=== PATIENT | male | born 1975 | race Hispanic/Latino ===

== ENCOUNTER 2017-05-04 09:31 | Emergency (ER) | payer SELFPAY ==
[~2017-05-04] VITALS: Ht 177.8 cm; Wt 118.5 kg
[2017-05-04 12:33] LABS: EOSINOPHIL (%) 0.7 % (0-5); EOSINOPHIL COUNT 0.1 K/uL (0-0.3); HEMATOCRIT 46.2 % (38.0-50.0); IMMATURE GRANULOCYTE (%) 0.7 % (0.0-0.7); IMMATURE GRANULOCYTE COUNT 0.1 K/uL; INSTRUMENT ABS NEUTROPHIL CT 6.2 K/uL; LYMPHOCYTE COUNT 1.4 K/uL (1.0-2.8); MCH 30.2 PG (29.0-34.0); MCHC 34.4 G/DL (30.0-36.0); MCV 87.7 FL (86-99); MEAN PLAT.VOLUME 11.7 uM^3 (9.0-12.4); MONOCYTE (%) 4.9 % (3-12); MONOCYTE COUNT 0.4 K/uL (0-0.8); NEUTROPHIL (%) 75.9 % (45-76); NEUTROPHIL COUNT 6.2 K/uL (1.8-6.4); PLATELET COUNT 180 K/uL (156-360); RBC DIS.WIDTH-CV 13.2 % (11.8-14.6); RBC DIS.WIDTH-SD 42.8 % (39-53); RED BLOOD COUNT 5.27 M/uL (4.00-5.50); WHITE BLOOD COUNT 8.2 K/uL (4.1-10.2)
[2017-05-04 12:45] LABS: CHLORIDE 108 mEq/L (99-109); POTASSIUM 4.3 mEq/L (3.7-5.4); SODIUM 138 mEq/L (136-147)
[2017-05-04 12:47] LABS: GLUCOSE 133 mg/dL (70-99)
[2017-05-04 12:48] LABS: ANION GAP 10 MEQ/L (2-14)
[2017-05-04 12:51] LABS: GFR ESTIMATE (CALCULATED) > 59 mL/min/ (58.99-99999)
[2017-05-04 12:52] LABS: UREA NITROGEN (BUN) 13 mg/dL (9-23)
[2017-05-04] MEDS ORDERED: VALIUM5 MG PO (14:48)
[2017-05-04] MEDS ORDERED: PERCOCET 5/31 TABLET PO (14:48)
[2017-05-04] MEDS ORDERED: MEDROL DOSEPAK4 MG PO (14:48)
[2017-05-04 15:02] VITALS: BP 128/83
== END 2017-05-04 15:04 | disposition home or self-care (01) ==
LOC: EME 09:31
PROVIDERS: Physician Assistant
DX: M51.16 Intervertebral disc disorders with radiculopathy, lumbar region (principal); I10 Essential (primary) hypertension; E11.9 Type 2 diabetes mellitus without complications
CPT/HCPCS: 71275; 74174; 80048; 85025; 99281; 99284; J1100; J1200; J2930; J3010